=== PATIENT | female | born 1970 | race Caucasian/White ===

== ENCOUNTER → 2017-09-23 | Outpatient (CLI) | payer SELFPAY ==
[2017-09-23 17:46] LABS: Appearance, Urine Clear (Clear); Blood, Urine 2+ (Neg); Color, Urine Yellow (P-Yellow); Glucose Qualitative, Urine Neg (Neg); Ketones, Urine Neg (Neg); Leukocyte Esterase, Urine 1+ (Neg); Nitrite, Urine Pos (Neg); Protein, Urine Neg (Neg); Urobilinogen, Urine 1+ (Normal)
[2017-09-23 17:58] LABS: Bilirubin, Urine 1+ (Neg)
[2017-09-23 18:05] LABS: Bacteria Few /hpf; Squamous Epithelial Cells Few /hpf (Few)
== END | disposition home or self-care (01) ==
LOC: LAB SHORT 15:44 → LAB SRC 15:44
PROVIDERS: Internal Medicine
DX: R30.0 Dysuria (principal)
CPT/HCPCS: 81001; 87086

== ENCOUNTER 2018-07-12 11:46 | Day surgery (SDC) | payer OTHER ==
[~2018-07-12] VITALS: Ht 157.5 cm; Wt 75.6 kg
[~2018-07-12 11:46] MED LIST: ALBU90OI; Estrace Vagin42.5 GM; LORA.5; Voltaren100 GM
[2018-07-12] MEDS ORDERED: Bactrim Ds Tab1 EACH (12:32)
[2018-07-12] MEDS ORDERED: IBUP800 PO (12:32)
[2018-07-12] MEDS ORDERED: Bacid1 EACH (12:33)
[2018-07-12] MEDS ORDERED: CRANBERRY500 MG (12:33)
--- NOTE | 2018-07-12 13:31 | NUR ---
07/12/18 1331 Codie Avila (Daja 4MG ZOFRAN IV GIVEN PER DR'S ORDERS AT 1323 FOR HICCUPS.
== END 2018-07-12 14:09 | disposition home or self-care (01) ==
LOC: ORSCSDS 11:46
PROVIDERS: Surgery
PROC: 0DJD8ZZ Inspection of Lower Intestinal Tract, Via Natural or Artificial Opening Endoscopic (ICD-10-PCS; principal; 2018-07-12 13:00)
DX: Z12.11 Encounter for screening for malignant neoplasm of colon (principal); Z80.0 Family history of malignant neoplasm of digestive organs; K57.30 Diverticulosis of large intestine without perforation or abscess without bleeding; K64.0 First degree hemorrhoids; Z87.891 Personal history of nicotine dependence; J45.909 Unspecified asthma, uncomplicated; Z79.899 Other long term (current) drug therapy
CPT/HCPCS: J0330; J0461; J2405; J2704; J7120

== ENCOUNTER → 2019-10-13 | Outpatient (CLI) | payer OTHER ==
[~2019-10-13] MED LIST changes: +Bacid1 EACH; +Bactrim Ds Tab1 EACH; +CRANBERRY500 MG; +IBUP800 PO
[2019-10-13 15:30] LABS: Bilirubin, Urine Neg (Neg); Blood, Urine Neg (Neg); Glucose Qualitative, Urine Neg (Neg); Ketones, Urine Neg (Neg); Leukocyte Esterase, Urine Neg (Neg); Nitrite, Urine Neg (Neg); Protein, Urine Neg (Neg); Urobilinogen, Urine NORM (Normal)
[2019-10-13 15:46] LABS: Appearance, Urine Clear (Clear); Color, Urine Pale Yellow (P-Yellow)
== END | disposition home or self-care (01) ==
LOC: LAB SHORT 11:25 → LAB SRC 11:25
PROVIDERS: Internal Medicine
DX: R35.0 Frequency of micturition (principal)
CPT/HCPCS: 81003

== ENCOUNTER 2020-05-25 09:02 | Emergency (ER) | payer OTHER ==
[~2020-05-25] VITALS: Ht 167.6 cm; Wt 72.6 kg
[2020-05-25] MEDS ORDERED: BRINTELLIX10 MG PO (09:16)
[2020-05-25 09:40] LABS: BASOPHILS ABSOLUTE AUTO 0.05 K/mm3 (0.00-0.23); BASOPHILS PERCENT AUTO 1 % (0-2); EOSINOPHILS ABSOLUTE AUTO 0.06 K/mm3 (0.00-0.68); EOSINOPHILS PERCENT AUTO 1 % (0-6); Hematocrit 43.8 % (33.0-51.0); Hemoglobin 14.4 g/dL (11.5-16.0); IMMATURE GRAN ABSOLUTE AUTO 0.01 K/mm3 (0.00-0.10); IMMATURE GRAN PERCENT AUTO 0 % (0-1); LYMPHOCYTES ABSOLUTE AUTO 2.01 K/mm3 (0.84-5.20); LYMPHOCYTES PERCENT AUTO 28 % (21-46); MONOCYTES ABSOLUTE AUTO 0.71 K/mm3 (0.16-1.47); MONOCYTES PERCENT AUTO 10 % (4-13); Mean Corpuscular HGB 31.4 pg (26.0-34.0); Mean Corpuscular HGB Conc 32.9 g/dL (31.5-36.5); Mean Corpuscular Volume 95 fL (80-100); Mean Platelet Volume 9.8 fL (9.1-12.4); NEUTROPHILS ABSOLUTE AUTO 4.46 K/mm3 (1.96-9.15); NEUTROPHILS PERCENT AUTO 61 % (41-73); Platelet Count 372 K/mm3 (150-400); RDW Coefficient Variation 12.6 % (11.7-14.2); RDW Standard Deviation 44.3 fL (35.1-46.3); Red Blood Cell Count 4.59 M/mm3 (3.80-5.20)
[2020-05-25 09:49] LABS: Alanine Aminotransfer (ALT/SGP 27 U/L (12-78); Albumin/Globulin Ratio 1.1 (0.8-1.8); Alk Phos 104 U/L (50-136); Anion Gap 3 mmol/L (6-16); Aspartate Aminotrans (AST/SGOT 17 U/L (12-37); Bilirubin, Total 0.4 mg/dL (0.1-1.0); Blood Urea Nitrogen 17 mg/dL (8-24); Bun/Creatinine Ratio 19.6 (12.0-20.0); CO2, Blood 28 mmol/L (21-32); Calcium, Blood 9.1 mg/dL (8.5-10.1); Chloride, Blood 108 mmol/L (98-108); Creatinine, Blood 0.87 mg/dL (0.40-1.00); Globulin, Blood 3.6 g/dL (2.2-4.0); Glomerular Filtration Rate >60 (60-); Glucose, Blood 101 mg/dL (70-99); Potassium, Blood 3.5 mmol/L (3.5-5.5); Sodium, Blood 139 mmol/L (136-145); Total Protein, Blood 7.6 g/dL (6.4-8.2); Troponin I <0.015 ng/mL (0.000-0.040)
== END 2020-05-25 10:17 | disposition home or self-care (01) ==
LOC: ER 09:02
PROVIDERS: Physician Assistant
DX: R07.9 Chest pain, unspecified (principal)
CPT/HCPCS: 36415; 71045; 80053; 83690; 84484; 85025; 93005; 93010; 99284-25

== ENCOUNTER 2021-01-27 07:36 | Day surgery (SDC) | payer OTHER ==
[~2021-01-27] VITALS: Ht 160 cm; Wt 74.3 kg
[~2021-01-27 07:36] MED LIST changes: +BRINTELLIX10 MG PO
[2021-01-27] MEDS ORDERED: ALPR.25 PO (08:31)
--- NOTE | 2021-01-27 09:38 | NUR ---
01/27/21 0938 Darlyn Navarro PT COMFORTABLE IN BED WITH EXTRA WARM BLANKETS. CALL LIGHT WITHIN REACH. BED IN LOWEST POSITION. PERSONAL PHONE WITHIN REACH. SIDE RAILS UP. NO QUESTIONS OR CONCERNS AT THIS TIME.
--- NOTE | 2021-01-27 10:26 | NUR ---
01/27/21 1026 Katina Burdick 30 MG EPI USED TO SOAK PLEDGETS PER ORDER FOR PACKING.
--- NOTE | 2021-01-27 12:30 | NUR ---
01/27/[address] AT BEDSIDE IMPEMENTED BILAT AFRIN SPRAY NASALLY FOR BLEEDING IN LEFT NOSTRIL. PT STATES IT DUARTE 3-05/25. BLEEDING IS SUBSIDING. DR ROMERO INSTRUCTED LIGHT BLOWING OF NOSE OK AND TO COUGH AND SPIT POST NASAL DRAINAGE UP AND SUCTION WHEN NEEDED.
--- NOTE | 2021-01-27 13:47 | NUR ---
01/27/21 0559 MAXI GOMEZ [id number] ROMERO ABOUT NASAL DRAINAGE/BLEEDING SLIGHT OOAING. GAVE AFRIN NASAL SPRAY IN BOTH NOSTRILS PER DION ORDERS. PT WAS TOLD THAT SHE COULD TRAVEL [place] TO [facility] WHERE SHE WAS GOING TO RECOVER AT HER FATHERS BUT IF BLEEDING CONT. SHE NEEDS TO GO TO A HOSPITAL THERE.
--- NOTE | 2021-01-27 15:58 | NUR ---
01/27/21 1558 Paola Elliott PT IS IN SDU FOLLOWING PROCEDURE WITH DR ROMERO. DR ROMERO IS GOING TO TAKE THE PT BACK TO THE OR. SEE THE PREVIOUS CHARTING FOR THIS PT.
--- NOTE | 2021-01-27 17:14 | NUR ---
01/27/211713 Luis Canales PER DR ROMERO'S ORDER, TXA IV 10MG/KG 1 DOSE NOW. ORDER CALLED TO PHARMACY. TXA STARTED AT 1700 PB IN LEFT AC.
== END 2021-01-27 17:51 | disposition home or self-care (01) ==
LOC: ORSCSDS 07:36
PROVIDERS: Otolaryngology
PROC: 09SL4ZZ Reposition Nasal Turbinate, Percutaneous Endoscopic Approach (ICD-10-PCS; principal; 2021-01-27 09:00)
PROC: 8E09XBZ Computer Assisted Procedure of Head and Neck Region (ICD-10-PCS; principal; 2021-01-27 09:00)
PROC: 09TL4ZZ Resection of Nasal Turbinate, Percutaneous Endoscopic Approach (ICD-10-PCS; principal; 2021-01-27 09:00)
PROC: 09TQ4ZZ Resection of Right Maxillary Sinus, Percutaneous Endoscopic Approach (ICD-10-PCS; principal; 2021-01-27 09:00)
PROC: 09TR4ZZ Resection of Left Maxillary Sinus, Percutaneous Endoscopic Approach (ICD-10-PCS; principal; 2021-01-27 09:00)
PROC: 09BM4ZZ Excision of Nasal Septum, Percutaneous Endoscopic Approach (ICD-10-PCS; principal; 2021-01-27 09:00)
PROC: 09CX4ZZ Extirpation of Matter from Left Sphenoid Sinus, Percutaneous Endoscopic Approach (ICD-10-PCS; principal; 2021-01-27 09:00)
DX: J32.4 Chronic pansinusitis (principal); J34.2 Deviated nasal septum; J34.3 Hypertrophy of nasal turbinates; J45.909 Unspecified asthma, uncomplicated; Z87.891 Personal history of nicotine dependence; K21.9 Gastro-esophageal reflux disease without esophagitis; Z79.899 Other long term (current) drug therapy
CPT/HCPCS: A9270; J0171; J1100; J1885; J2250; J2405; J2704; J3010; J7120

== ENCOUNTER 2024-04-18 09:39 | Day surgery (SDC) | payer OTHER ==
[~2024-04-18] VITALS: Ht 160 cm; Wt 86.9 kg
[~2024-04-18 09:39] MED LIST changes: +ALBU90OI INH; +ALPR.25 PO; +ALPR.5 PO; +DESV50 PO; +DICLOFENAC SOD100 GM; +Estrace Vagin42.5 GM VAG; +Lactated Ringer's 1,000 ML IV ONE; +Vyvanse30 MG PO; +propofoL 50 ML IV ONE
[2024-04-18] MEDS ORDERED: Lactated Ringer's 1,000 ML IV ONE (11:25)
[2024-04-18] MEDS ORDERED: NS 500 ML IV ONE (12:21)
--- NOTE | 2024-04-18 12:34 | NUR ---
04/18/24 1234 Herve Ba BROWN TINGED GASTRIC JUICES NOTED FROM NOSE DURING PROCEDURE, AWARE, NO WRETCHING NOTED DURING PROCEDURE. PT ABLE TO BLOW NOSE AFTER PROCEDURE IN OR ROOM WITH ASSISTANCE. O2 SATURATIONS NOTED AT 100%.
[2024-04-18] MEDS ORDERED: propofoL 50 ML IV ONE (12:35)
[2024-04-18 13:08] VITALS: BP 119/71
== END 2024-04-18 13:00 | disposition home or self-care (01) ==
LOC: ORSCSDS 09:39
PROVIDERS: Surgery
PROC: 0DB78ZX Excision of Stomach, Pylorus, Via Natural or Artificial Opening Endoscopic, Diagnostic (ICD-10-PCS; principal; 2024-04-18 11:00)
PROC: 0DJD8ZZ Inspection of Lower Intestinal Tract, Via Natural or Artificial Opening Endoscopic (ICD-10-PCS; principal; 2024-04-18 11:00)
PROC: 0DB48ZX Excision of Esophagogastric Junction, Via Natural or Artificial Opening Endoscopic, Diagnostic (ICD-10-PCS; principal; 2024-04-18 11:00)
DX: Z12.11 Encounter for screening for malignant neoplasm of colon (principal); Z83.719 Family history of colon polyps, unspecified; K21.9 Gastro-esophageal reflux disease without esophagitis; R13.19 Other dysphagia; R23.4 Changes in skin texture; K29.70 Gastritis, unspecified, without bleeding; K22.2 Esophageal obstruction; J45.909 Unspecified asthma, uncomplicated; Z79.899 Other long term (current) drug therapy
CPT/HCPCS: 43239; G0105; 88305; 88312; 88342; J2704; J7120